=== PATIENT | female | born 2000 | race Caucasian/White ===

== ENCOUNTER 2021-07-11 11:48 | Emergency (ER) | payer OTHER, SELFPAY ==
[2021-07-11 12:16] VITALS: BP 115/67; PULSE 99; RESP 18; TEMP 36.8; O2SAT 99
--- NOTE | 2021-07-11 13:00 | ED.GENADULT ---
HPI - General Adult General Chief complaint: Upper Respiratory Infection Stated complaint: sorethroat Source: patient Mode of arrival: ambulatory Limitations: no limitations History of Present Illness HPI narrative: Patient is a 20-year-old female presents to the urgent care via POV for evaluation of a sore throat that began yesterday. Additionally, she is myalgias. No relief with Sudafed. Nothing improves or worsen symptoms. Patient denies known exposure to sick contacts. She states that she is unvaccinated against Covid and influenza. Related Data Home Medications Medication Instructions Recorded Confirmed No Home Medications 07/11/21 07/11/21 Allergies Allergy/AdvReac Type Severity Reaction Status Date / Time codeine Allergy Unknown Verified 07/11/21 12:40 Review of Systems Review of Systems: Denies fever, chills, sweats, change in appetite, poor p.o. intake, ear pain, ear drainage, sinus problems, rhinorrhea, drooling, difficulty swallowing, cough, wheezing, shortness of breath, chest pain, heart palpitations, abdominal pain, nausea, vomiting, diarrhea, and lymphadenopathy PMFSH Social History Social History Gender identity (if verbalized by the patient): Female Comments Spinal stenosis, radiculopathy/sciatica,cauda equina syndrome, sacroiliac pathology, fracture, strain Exam Narrative: GENERAL: Well-appearing, well-nourished, and in no acute distress. HEAD: Normocephalic, atraumatic. No sinus tenderness or facial swelling appreciated. EYES: PERRLA and EOMI. No evidence of erythema, swelling, or drainage. ENT: Bilateral external ears and ear canals normal. Bilateral TMs are normal.No TM perforation. Nares clear, no rhinorrhea or epistaxis. Bilateral turbinates without erythema/ swelling. Mucous membranes moist and pink. Uvula is midline without erythema and swelling. Mild erythema noted to posterior pharynx otherwise normal. Breath odor and voice normal. NECK: Supple. No Lymphadenopathy or nuchal rigidity appreciated. CHEST: Bilateral lung daley are clear to auscultation. No respiratory distress. No evidence of cough or pleuritic cp upon examination. HEART: Regular rate and rhythm. No murmur, gallop, or rub heard. EXTREMITIES: Normal range of motion. No edema. SKIN: Warm, dry, no rash. NEURO: No focal deficits. Alert and oriented x3. Course Vital Signs Vital signs: Vital Signs Temperature 98.2 F 07/11/21 12:16 Pulse Rate 99 07/11/21 12:16 Respiratory Rate 18 07/11/21 12:16 Blood Pressure 115/67 07/11/21 12:16 Pulse Oximetry 99 07/11/21 12:16 Temperature 98.2 F 07/11/21 12:16 Pulse Rate 99 07/11/21 12:16 Respiratory Rate 18 07/11/21 12:16 Blood Pressure 115/67 07/11/21 12:16 Pulse Oximetry 99 07/11/21 12:16 Review Medical Decision Making MDM Narrative Medical decision making narrative: The patient/guardian displays adequate decision making capability and despite a detailed discussion of alternatives, benefits, risks, and consequences refuses COVID-19 and influenza testing Differential Diagnosis Differential Diagnosis: Allergic rhinitis, ABRS, acute viral sinusitis, strep pharyngitis, nasopharyngitis, bronchitis, pneumonia, AOM, otitis externa, viral URI, influenza, covid-19 Medical Records Medical records reviewed: Yes I reviewed the external patient's medical records. Vital Signs Vital Signs: Vital Signs Temperature 98.2 F 07/11/21 12:16 Pulse Rate 99 07/11/21 12:16 Respiratory Rate 18 07/11/21 12:16 Blood Pressure 115/67 07/11/21 12:16 Pulse Oximetry 99 07/11/21 12:16 Temperature 98.2 F 07/11/21 12:16 Pulse Rate 99 07/11/21 12:16 Respiratory Rate 18 07/11/21 12:16 Blood Pressure 115/67 07/11/21 12:16 Pulse Oximetry 99 07/11/21 12:16 Lab Data Lab results reviewed: Yes I reviewed the patient's lab results. Lab results narrative: Rapid stre
== END 2021-07-11 13:15 | disposition home or self-care (01) ==
PROVIDERS: Emergency Provider Nurse Practitioner Family
DX: J06.9 Acute upper respiratory infection, unspecified (principal)
CPT/HCPCS: 87081; 87880; 99213; G0463

== ENCOUNTER 2021-10-22 10:26 | Emergency (ER) | payer OTHER, SELFPAY ==
--- NOTE | 2021-10-22 10:56 | ED.URI ---
HPI - URI/Sore Throat General Stated Complaint: nasal congestion,cough Time Seen by Provider: 10/22/21 11:05 Source: patient Mode of arrival: ambulatory Limitations: no limitations History of Present Illness HPI Narrative: Ms. Cortes is a 20-year-old female patient presenting to the clinic today with complaints of sinus congestion, cough, sinus pressure, yellow nasal drainage, and headaches x11 to 12 days. She reports no known fever or chills. No known exposure to anyone with Covid, flu, or strep. Thinks that she may have a sinus infection MD elicited complaint: cough, sore throat, rhinorrhea, nasal congestion and sinus pain Related Data Allergies Allergy/AdvReac Type Severity Reaction Status Date / Time codeine Allergy Unknown Verified 10/22/21 11:18 Review of Systems Review of Systems: Pertinent positives per HPI. Patient denies any fever, chills, rash, headache, visual changes, dizziness, shortness of breath, chest pain, palpitations, nausea, vomiting, diarrhea, constipation, abdominal pain, or any urinary issues. [facility] Social History Social History Gender identity (if verbalized by the patient): Female Comments At the time of my signature, I reviewed and agree with the nursing past medical, surgical, social, and family history. There is no relevant family history pertinent to the patient complaint. Exam Narrative: General: Well-developed, well nourished, in no apparent distress Head: Normocephalic, atraumatic Eyes: Pupils equally round and reactive to light bilaterally, EOM intact, sclera and conjunctive clear, no discharge, lids normal Ears: TMs intact and clear, ear canals clear, no drainage, grossly hearing normal. Nose: Nares patent, no discharge, no inflammation, no sinus tenderness. Mouth: Oral pharynx without lesions or masses, good dentition, MMM. Neck: Supple, trachea midline, no enlargement of anterior or posterior cervical nodes, no thyroid masses or goiter palpable. Cardio: Regular rate and rhythm, s1 and s2 normal, no murmur appreciated. Resp: Clear to auscultation bilaterally, no rhonchi, rales, wheezing or rubs Course Course Emergency Course: Portions of this record may have been created with voice recognition software. Level of Care: Express Care Visit Vital Signs Vital signs: Vital signs reviewed MDM - URI/Sore Throat MDM Narrative Medical decision making narrative: At the time of assessment patient is resting comfortably on the exam table. Reporting sinus pain/pressure with yellow nasal drainage. Having sinus headaches. Symptoms has been ongoing for 11 to 12 days. I suspect acute rhinosinusitis and will treat with a course of Augmentin. Supportive measures was discussed with patient she voiced understanding Differential Diagnosis Differential diagnosis: Likely upper respiratory infection, sinusitis, viral infection, influenza and pharyngitis Discharge Plan Discharge Clinical Impression: Acute bacterial rhinosinusitis Patient Disposition: Home, Self-Care Condition: Stable Instructions: Antibiotic Form, Rhinosinusitis (ED) Additional Instructions: Take prescription medications only as prescribed Augmentin as prescribed-May take [id number] Sudafed as needed for nasal congestion Increase fluids and stay well hydrated Tylenol/motrin for pain/fever Flonase and OTC antihistamines as directed Vicks vapor rub to open sinuses Sinus rinses for congestion Cepacol spray, cough drops, throat lozenges, warm tea with honey/lemon, gargle salt water to soothe throat BRAT diet for diarrhea Clear liquids x 24 hours then advance as tolerated for nausea/vomiting May return to the clinic if symptoms worsen Go to the ED if you develop dehydration, weakness, lethargy, shortness of breath, or chest pain. Follow up with your PCP in 3-5 days if symptoms persist. Prescriptions: New amoxicillin-pot clavulan
[2021-10-22 10:58] VITALS: BP 112/63; PULSE 68; RESP 18; TEMP 36.4; O2SAT 100
== END 2021-10-22 11:22 | disposition home or self-care (01) ==
PROVIDERS: Emergency Provider Nurse Practitioner Family
DX: J01.90 Acute sinusitis, unspecified (principal)
CPT/HCPCS: 99213; G0463

== ENCOUNTER 2022-06-29 21:34 | Emergency (ER) | payer MEDICAID, SELFPAY ==
--- NOTE | ~2022-06-29 | CT_ITS ---
EXAMINATION: CT abdomen pelvis w con INDICATION: Right upper quadrant abdominal pain TECHNIQUE: Computed tomographic images of the abdomen and pelvis were obtained after the administrati on of 100 cc of Omnipaque 350 intravenous contrast. The dose-length product (DLP) was 495.80 mGy-cm. Automated exposure control and iterative reconstruction technique were employed. COMPARISON: None available FINDINGS: The lung bases are clear. The heart size is normal. The liver, spleen, pancreas, gallbladde r, and adrenal glands are normal. The kidneys are unremarkable. No pathologically enlarged abdominal or pelvic lymph nodes are identified. There is no free intraperitoneal gas or evidence of bowel obstr uction. The appendix is normal. There is a 2.2 cm right adnexal cyst. IMPRESSION: 1. No CT correlate for the patient's symptoms. Reviewed, dictated and finalized at location A. H NP
[2022-06-29 21:37] VITALS: BP 135/77; PULSE 82; RESP 16; TEMP 36.6; O2SAT 99
[2022-06-30] MEDS: SODIUM CHLORIDE 0.9% IV 1,000 ML 999 ML IV CONT (01:05)
[2022-06-30] MEDS: ONDANSETRON INJ 4 MG/2 ML VIAL IV PUSH (01:05)
[2022-06-30 01:08] LABS: Basophils Percent Auto 0.4 % (0.2-1.2); Eosinophils Absolute Auto 0.6 K/mm3 (0-0.3); Eosinophils Percent Auto 5.9 % (0-4.4); Hematocrit 39.1 % (37.0-47.0); Hemoglobin 13.4 g/dL (12.0-15.0); Immature Granulocyte Absolute 0.02 K/mm3 (0.00-0.031); Immature Granulocyte Percent A 0.2 % (0-0.5); Lymphocytes Absolute Auto 3.76 K/mm3 (0.9-3.2); Lymphocytes Percent Auto 39.8 % (18.3-44.2); Mean Corpuscular HGB Conc 34.3 g/dl (32-36); Mean Corpuscular Hemoglobin 31.9 pg (26-34); Mean Corpuscular Volume 93.1 fl (80-100); Mean Platelet Volume 10.9 fl (7.4-10.4); Monocytes Absolute Auto 0.8 K/mm3 (0.1-0.6); Monocytes Percent Auto 8.3 % (2.6-8.5); Neutrophils Absolute Auto 4.3 K/mm3 (1.3-6.7); Neutrophils Percent Auto 45.4 % (45.5-73.1); Platelet Count Result 208 k/mm3 (150-375); Red Cell Distribution Width 11.4 % (11.5-14.5); White Blood Count 9.5 K/mm3 (4.5-10.0)
[2022-06-30] MEDS: KETOROLAC 30 MG/ML VIAL (*BKC) IV PUSH (01:10)
[2022-06-30 01:12] LABS: Add Urine Microscopic? YES; Appearance Urine Clear (Clear); Bilirubin Urine Negative (Negative); Blood Urine Negative (Negative); Color Urine Light Yellow (Yellow); Glucose Urine UA Negative (Negative); Ketones Urine Trace mg/dL (Negative); Leukocyte Esterase Ur Negative LEU/UL (Negative); Nitrate Urine Negative (Negative); Protein Urine Negative (Negative); Specific Grav Ur 1.015 (1.001-1.035); Urobilinogen Urine 0.2 mg/dL (<2.0); pH Urine 6.5 (5.0-9.0)
[2022-06-30 01:14] LABS: Bacteria Urine Trace /hpf; Mucus Urine Rare /lpf; Squamous Epithelial Cell Urine Rare /hpf (Few); WBC Urine 0-3 /hpf
[2022-06-30 01:19] LABS: Alanine Aminotransferase 18 U/L (6-35); Albumin Level 4.9 g/dL (3.5-5.1); Alkaline Phosphatase 70 U/L (38-126); Anion Gap 7 mmol/L (8-16); Aspartate Amino Transferase 21 U/L (14-36); Bilirubin,Total 0.5 mg/dL (0.2-1.3); Blood Urea Nitrogen 15 mg/dL (7-17); Calcium 9.8 mg/dL (8.4-10.2); Carbon Dioxide 25 mmol/L (22-30); Chloride 104 mmol/L (98-107); Estimated CRCL calculation 97 ml/min; Estimated Glomerular Filt Rate > 60; Glucose 93 mg/dL (65-110); Potassium 3.6 mmol/L (3.4-5.0); Sodium 136 mmol/L (137-145)
[2022-06-30 01:20] LABS: INR 1.1; Prothrombin Time 13.4 Seconds (11.1-14.7)
[2022-06-30 01:21] LABS: Partial Thromboplastin Time 28.3 SECONDS (22.3-36.8)
--- NOTE | 2022-06-30 04:30 | ED.GENADULT ---
HPI - General Adult General Chief complaint: Back Pain/Injury Stated complaint: kidney stones? Time Seen by Provider: 06/29/22 23:56 History of Present Illness HPI narrative: Patient is a 21-year-old female who presents today with right-sided flank pain. Began this evening. Sudden onset. Associate with nausea but no vomiting. Movement into the right upper quadrant. No pain into her lower abdomen. No urinary frequency urgency or dysuria. No identified alleviating factors. Reports it may have been provoked by eating. Related Data Allergies Allergy/AdvReac Type Severity Reaction Status Date / Time codeine Allergy Unknown Unknown Verified 06/29/22 21:35 Review of Systems Review of Systems: All systems reviewed & are unremarkable except as noted in HPI and below Constitutional: Constitutional: Denies chills and Denies fatigue ENT: Denies nasal congestion and Denies sore throat Cardiovascular: Cardiovascular: Denies chest pain, Denies rapid heart rate and Denies radiating jaw, neck or arm pain Respiratory: Respiratory: Denies cough and Denies dyspnea Gastrointestinal: Gastrointestinal: Reports abdominal pain, Denies diarrhea, Reports nausea and Denies vomiting Genitourinary: Genitourinary: Denies hematuria, Denies nocturia, Denies dysuria and Reports flank pain PMFSH Social History Social History Gender identity (if verbalized by the patient): Female Exam Narrative: GENERAL: Well-appearing, well-nourished, and in no acute distress. HEAD: Normocephalic, atraumatic. ENT: Mucous membranes moist. CHEST: Clear to auscultation. No respiratory distress. HEART: Regular rate and rhythm. Normal peripheral pulses. ABDOMEN: Soft, tender palpation right upper quadrant with Perdomo sign, nondistended. No CVA tenderness EXTREMITIES: Normal range of motion. No edema. SKIN: Warm, dry, no rash. NEURO: Alert and oriented x3. PSYCH: Normal mood and affect. Course Course Emergency Course: Pain controlled. Informed of results. Recommend outpatient ultrasound through PCP for further evaluation. Patient informed of incidental ovarian cyst. Encouraged low-fat diet. Vital Signs Vital signs: Vital Signs Temperature 97.9 F 06/29/22 21:37 Pulse Rate 82 06/29/22 21:37 Respiratory Rate 16 06/29/22 21:37 Blood Pressure 135/77 06/29/22 21:37 Pulse Oximetry 99 06/29/22 21:37 Oxygen Delivery Room Air 06/29/22 21:37 Temperature 97.9 F 06/29/22 21:37 Pulse Rate 82 06/29/22 21:37 Respiratory Rate 16 06/29/22 21:37 Blood Pressure 135/77 06/29/22 21:37 Pulse Oximetry 99 06/29/22 21:37 Oxygen Delivery Room Air 06/29/22 21:37 Medical Decision Making Vital Signs Vital Signs: Vital Signs Temperature 97.9 F 06/29/22 21:37 Pulse Rate 82 06/29/22 21:37 Respiratory Rate 16 06/29/22 21:37 Blood Pressure 135/77 06/29/22 21:37 Pulse Oximetry 99 06/29/22 21:37 Oxygen Delivery Room Air 06/29/22 21:37 Temperature 97.9 F 06/29/22 21:37 Pulse Rate 82 06/29/22 21:37 Respiratory Rate 16 06/29/22 21:37 Blood Pressure 135/77 06/29/22 21:37 Pulse Oximetry 99 06/29/22 21:37 Oxygen Delivery Room Air 06/29/22 21:37 Lab Data 06/30/22 01:02 06/30/22 01:02 Labs: Lab Results 06/30/22 06/30/22 06/30/22 Range/Units 00:57 01:02 01:02 WBC 9.5 (4.5-10.0) K/mm3 RBC 4.20 (4.2-5.4) M/mm3 Hgb 13.4 (12.0-15.0) g/dL Hct 39.1 (37.0-47.0) % MCV 93.1 (80-100) fl MCH 31.9 (26-34) pg MCHC 34.3 (32-36) g/dl RDW 11.4 L (11.5-14.5) % Plt Count 208 (150-375) k/mm3 MPV 10.9 H (7.4-10.4) fl Immature Gran % (Auto) 0.2 (0-0.5) % Neut % (Auto) 45.4 L (45.5-73.1) % Lymph % (Auto) 39.8 (18.3-44.2) % Mckinley % (Auto) 8.3 (2.6-8.5) % Eos % (Auto) 5.9 H (0-4.4) % Baso % (Auto) 0.4 (0.2-1.2) % Lymph # (Auto)
== END 2022-06-30 04:53 | disposition home or self-care (01) ==
PROVIDERS: Emergency Provider Emergency Medicine
DX: R10.9 Unspecified abdominal pain (principal)
CPT/HCPCS: 36415; 74177; 80053; 81001; 81025; 85025; 85610; 85730; 96361; 96374; 96375; 99284; J1885; J2405; J7030; Q9967

== ENCOUNTER → 2022-07-02 13:48 | Outpatient (CLI) | payer MEDICAID, SELFPAY ==
--- NOTE | ~2022-07-02 | US_ITS ---
Renal-Bladder ultrasound Clinical History: Nausea, pain Technique: Real-time sonographic imaging of the kidneys and urinary bladder was performed. Findings: The right kidney measures 11.9 cm in length and the left kidney measures 11.6 cm. There is no hydronephrosis or renal calculus identified. Renal cortical echogenicity is within normal limits. No renal mass lesion is identified. The urinary bladder is partially distended at the time of this exam. No intraluminal echoes are ident ified. No abnormal wall thickening is seen. Impression: Unremarkable ultrasound of the kidneys and urinary bladder. Reviewed, dictated and finalized at location M. MANAGER Impression: Unremarkable ultrasound of the kidneys and urinary bladder.
== END ==
DX: R11.0 Nausea (principal); M54.6 Pain in thoracic spine
CPT/HCPCS: 76775

== ENCOUNTER → 2022-07-04 12:46 | Outpatient (CLI) | payer MEDICAID, SELFPAY ==
--- NOTE | ~2022-07-04 | US_ITS ---
Limited Abdominal Sonogram: Real-time sonographic imaging of the right upper quadrant was performed. Clinical History: Nausea Findings: The liver appears normal with no evidence of mass lesion or bile duct dilatation. Main por jaxon vein demonstrates normal direction of flow. The gallbladder is well distended, and appears normal with no evidence of gallstone or wall thickening. The common bile duct measures 3 mm. The visualize d pancreas, aorta, and IVC are unremarkable. Impression: No significant abnormality seen. Reviewed, dictated and finalized at location M. ND PLANNER Impression: No significant abnormality seen.
== END ==
DX: R11.0 Nausea (principal); M54.6 Pain in thoracic spine
CPT/HCPCS: 76705

== ENCOUNTER 2024-01-08 10:15 | Emergency (ER) | payer OTHER, MEDICAID, SELFPAY ==
--- NOTE | 2024-01-08 10:18 | ED.URI ---
HPI - URI/Sore Throat General Chief Complaint: Upper Respiratory Infection Stated Complaint: +COVID test @ home work note Time Seen by Provider: 01/08/24 10:18 Source: patient Mode of arrival: ambulatory Limitations: no limitations History of Present Illness HPI Narrative: Santa is a 23-year-old female patient presenting to the clinic today with complaints cough, headache,congestion, nausea, diarrhea, low grade fever, body aches and chills x3 days. She reports that she had a positive COVID test at home today and is needing a work note. Symptoms began on Friday of this week Related Data Home Medications Medication Instructions Recorded Confirmed alprazolam 0.25 mg tablet 0.25 mg PO DAILY 01/08/24 01/08/24 Allergies Allergy/AdvReac Type Severity Reaction Status Date / Time codeine Allergy Unknown Unknown Verified 01/08/24 10:18 Review of Systems Review of Systems: Pertinent positives per HPI. Patient denies any rash, visual changes, dizziness, shortness of breath, chest pain, palpitations, nausea, vomiting, diarrhea, constipation, abdominal pain, or any urinary issues. PMFSH Social History Social History Gender identity (if verbalized by the patient): Female Comments At the time of my signature, I reviewed and agree with the nursing past medical, surgical, social, and family history. There is no relevant family history pertinent to the patient complaint. Exam Narrative: General: Well-developed, well nourished, in no apparent distress Head: Normocephalic, atraumatic Eyes: Pupils equally round and reactive to light bilaterally, EOM intact, sclera and conjunctive clear, no discharge, lids normal Ears: TMs intact and clear, ear canals clear, no drainage, grossly hearing normal. Nose: Nares patent, clear discharge, no inflammation, no sinus tenderness. Mouth: Oropharynx without lesions or masses, good dentition, MMM. Neck: Supple, trachea midline, no enlargement of anterior or posterior cervical nodes, no thyroid masses or goiter palpable. Cardio: Regular rate and rhythm, s1 and s2 normal, no murmur appreciated. Resp: Clear to auscultation bilaterally anteriorly and posteriorly, no rhonchi, rales, wheezing or rubs Course Course Emergency Course: Portions of this record may have been created with voice recognition software. Level of Care: Express Care Visit Vital Signs Vital signs: Vital signs reviewed MDM - URI/Sore Throat MDM Narrative Medical decision making narrative: At the time of visit patient is resting comfortably on the exam table. Patient appears to be nontoxic. Labs: COVID testing was positive in the clinic today. Plan: I suspect patient has COVID 19. Discussed new quarantine guidelines and will give work note till Friday-may return on Friday as long as she is fever free. Supportive measures were discussed with the patient and they voiced understanding discharge instructions and agrees to treatment plan. Return precautions reviewed Differential Diagnosis Differential diagnosis: Likely upper respiratory infection, croup, otitis media, sinusitis, viral infection, bronchitis, influenza, pharyngitis and other (COVID) Discharge Plan Discharge Clinical Impression: COVID-19 Patient Disposition: Home, Self-Care Condition: Stable Instructions: Antibiotic Form, How to Recover from COVID-19 at Home (ED) Additional Instructions: COVID testing was positive in the clinic today Increase fluids and stay well hydrated Tylenol/motrin for pain/fever Flonase and OTC antihistamines as directed Vicks vapor rub to open sinuses Sinus rinses for congestion Cepacol spray, cough drops, throat lozenges, warm tea with honey/lemon, gargle salt water to soothe throat BRAT diet for diarrhea Clear liquids x 24 hours then advance as tolerated for nausea/vomiting Go to the ED if you develop a worsening in your co
[2024-01-08 10:34] VITALS: BP 122/64; PULSE 76; RESP 16; TEMP 36.6; O2SAT 98
== END 2024-01-08 11:00 | disposition home or self-care (01) ==
PROVIDERS: Emergency Provider Nurse Practitioner Family; PCP Nurse Practitioner Family
DX: U07.1 COVID-19 (principal); J45.909 Unspecified asthma, uncomplicated
CPT/HCPCS: 87426; 99213; G0463

== ENCOUNTER 2024-01-21 10:37 | Emergency (ER) | payer OTHER, SELFPAY ==
[2024-01-21 10:47] VITALS: BP 117/68; PULSE 75; RESP 18; TEMP 36.9; O2SAT 100
--- NOTE | 2024-01-21 11:09 | ED.DIZZY ---
HPI - Dizziness General Chief Complaint: Dizziness Stated Complaint: Dizziness, ear pain Time Seen by Provider: 01/21/24 10:55 Source: patient and RN notes reviewed Mode of arrival: ambulatory Limitations: no limitations History of Present Illness HPI Narrative: Patient presents today complaining of dizziness that was present when she woke up yesterday morning. It decreased throughout the day yesterday, but increased slightly today. She did have some left ear pain that started yesterday, but now reports some bilateral ear pressure. She did have nausea throughout the day yesterday that still persists. Her dizziness is worse when she is standing or moving her head from side to side. She has tried no [id number] treatment prior to arrival. Related Data Home Medications Medication Instructions Recorded Confirmed alprazolam 0.25 mg tablet 0.25 mg PO DAILY 01/08/24 01/08/24 Allergies Allergy/AdvReac Type Severity Reaction Status Date / Time codeine Allergy Unknown Unknown Verified 01/08/24 10:18 Review of Systems Review of Systems: CONSTITUTIONAL: Denies body aches, fever, chills, or sweats. EYES: Denies visual changes, redness, or discharge. ENT: Denies rhinorrhea, congestion, sore throat. + bilateral ear pressure CARDIOVASCULAR: Denies chest pain, palpitations, or edema. RESPIRATORY: Denies cough or dyspnea. GASTROINTESTINAL: Denies abdominal pain, vomiting, or diarrhea.+ nausea GENITOURINARY: Denies dysuria or hematuria. SKIN: Denies rash, itching, or wounds. MUSCULOSKELETAL: Denies back pain, joint pain, or myalgia. NEUROLOGIC: Denies headache, numbness, tingling, or weakness.+ dizziness PSYCH: Denies depression or anxiety. PMFSH Social History Social History Gender identity (if verbalized by the patient): Female Comments At time of signature, I have reviewed and agree with nursing past medical, surgical, social and family history unless otherwise noted. Please see nursing chart for further information. There is no relevant family history pertinent to the presenting complaint Exam Narrative: GENERAL: Well-appearing, well-nourished, and in no acute distress. HEAD: Normocephalic, atraumatic. EYES: EOMI. PERRL. No nystagmus. No redness or drainage. Conjunctivae normal. ENT: Mucous membranes pink and moist. Nares clear. No rhinorrhea. Right TM normal with [id number] serous effusion. Left TM normal. Throat normal. Uvula midline. NECK: Normal AROM. Supple. No lymphadenopathy. CHEST: No respiratory distress. Clear to auscultation. HEART: Regular rate and rhythm. No murmur appreciated. EXTREMITIES: Normal range of motion. No edema. SKIN: Warm, dry, no rash. Capillary refill normal. Normal skin turgor. NEURO: No focal deficits. Alert and oriented x3. Gait steady. PSYCH: Normal affect. No signs of depression or anxiety. Course Course Level of Care: Express Care Visit Vital Signs Vital signs: Vital Signs Temperature 98.4 F 01/21/24 10:47 Pulse Rate 75 01/21/24 10:47 Respiratory Rate 18 01/21/24 10:47 Blood Pressure 117/68 01/21/24 10:47 Pulse Oximetry 100 01/21/24 10:47 Temperature 98.4 F 01/21/24 10:47 Pulse Rate 75 01/21/24 10:47 Respiratory Rate 18 01/21/24 10:47 Blood Pressure 117/68 01/21/24 10:47 Pulse Oximetry 100 01/21/24 10:47 Reviewed MDM - Dizziness MDM Narrative Medical decision making narrative: Patient's symptoms are consistent with vertigo. She does have a mild serous effusion on the right. She will be treated with Zofran and meclizine at [facility]. Prescription for Zofran sent to pharmacy. Discussed meclizine use at home as well. ED precautions given. Differential Diagnosis Differential diagnosis: Likely benign paroxysmal positional vertigo, orthostatic hypotension, acute vestibular neuronitis and other (Vertigo, Meniere's disease, otitis media, serous
[2024-01-21] MEDS: MECLIZINE HCL 25 MG TABLET 50 MG PO (11:13)
[2024-01-21] MEDS: ONDANSETRON HCL ODT 4 MG TABLET SUBLINGUAL (11:13)
== END 2024-01-21 11:18 | disposition home or self-care (01) ==
PROVIDERS: Emergency Provider Nurse Practitioner; PCP Nurse Practitioner Family
DX: R42 Dizziness and giddiness (principal); H65.01 Acute serous otitis media, right ear
CPT/HCPCS: 99213; A9270; G0463

== ENCOUNTER 2025-05-15 10:25 | Emergency (ER) | payer OTHER, SELFPAY ==
[2025-05-15 10:44] VITALS: BP 115/68; PULSE 105; RESP 20; TEMP 37.3; O2SAT 100
--- NOTE | 2025-05-15 11:41 | ED_ITS ---
HPI - General Adult General Chief complaint: Upper Respiratory Infection Stated complaint: sore throat Time Seen by Provider: 05/15/25 11:41 Source: patient Mode of arrival: ambulatory Limitations: no limitations History of Present Illness HPI narrative: 24-year-old female patient presents to [facility] with complaints of sore throat symptoms for the past 4-5 days. Patient states she recently just returned from vacation in [place]. Patient states her sore throat started the day after she returned. Patient states she has had low-grade fevers, body aches, chills and a little congestion. Denies any ear pain. Denies any coughing, chest pain or shortness of breath. Denies nausea vomiting or diarrhea. Patient states she has been taking [id number] Tylenol and ibuprofen for the pain. Related Data Home Medications ?Medication ?Instructions ?Recorded ?Confirmed ?Last Taken ?Type alprazolam 0.25 mg tablet 0.25 mg PO DAILY 01/08/24 Unknown History Allergies Allergy/AdvReac Type Severity Reaction Status Date / Time codeine Allergy Unknown Unknown Verified 01/08/24 10:18 Review of Systems Review of Systems: CONSTITUTIONAL: Positive low-grade fever, chills, and sweats. EYES: Denies visual changes, redness, or discharge. ENT: Denies rhinorrhea, positive congestion, positive sore throat, positive left otalgia. CARDIOVASCULAR: Denies chest pain, palpitations, or edema. RESPIRATORY: Denies cough or dyspnea. GASTROINTESTINAL: Denies abdominal pain, nausea, vomiting, or diarrhea. GENITOURINARY: Denies dysuria or hematuria. SKIN: Denies rash or itching. MUSCULOSKELETAL: Denies back pain, joint pain, or myalgia. NEUROLOGIC: Positive headache, denies numbness, or weakness. PSYCHIATRIC: Denies anxiety or depression. [facility] Past Medical History Medical History No significant past medical history Social History Social History Gender identity (if verbalized by the patient): Female Comments At the time of my signature I agree with nursing past medical history, surgical, social, and family history. There is no relevant family history pertinent to the presenting complaint. Exam Narrative: GENERAL: ill-appearing, well-nourished, and in no acute distress. HEAD: Normocephalic, atraumatic. EYES: PERRLA and EOMI. ENT: Nares with erythema edema noted to the left near, no rhinorrhea or epistaxis. Mucous membranes moist. Posterior pharynx with 3+ tonsillar enlargement erythema small white exudates noted to the left tonsil. Bilateral TMs are clear no erythema foreign bodies the canal. NECK: Supple. No lymphadenopathy CHEST: Clear to auscultation. No respiratory distress. HEART: Regular rate and rhythm. No murmur heard. Normal peripheral pulses. ABDOMEN: Soft, nontender, nondistended, normal active bowel sounds. EXTREMITIES: Normal range of motion. No edema. SKIN: Warm, dry, no rash. NEURO: No focal deficits. Alert and oriented x3. Course Course Level of Care: Express Care Visit Vital Signs Vital signs: Vital Signs Temperature 37.3 C 05/15/25 10:44 Pulse Rate 105 H 05/15/25 10:44 Respiratory Rate 20 05/15/25 10:44 Blood Pressure 115/68 05/15/25 10:44 Pulse Oximetry 100 05/15/25 10:44 Oxygen Delivery Room Air 05/15/25 10:44 Temperature 37.3 C 05/15/25 10:44 Pulse Rate 105 H 05/15/25 10:44 Respiratory Rate 20 05/15/25 10:44 Blood Pressure 115/68 05/15/25 10:44 Pulse Oximetry 100 05/15/25 10:44 Oxygen Delivery Room Air 05/15/25 10:44 Vital signs reviewed. Medical Decision Making MDM Narrative Medical decision making narrative: Discussed with patient that her point of care testing for your strep, influenza and COVID are all negative today. Discussed with patient it does appear that she has got stone pretty swollen and red tonsils which we will provide her some steroids to help with the pain since ibuprofen is not helping. Discussed with patient to continue taking [id number] medication including Tylenol and ibuprofen as needed and highly recommend that she increase her vitamin intake including vitamin-C, vitamin-D and zinc to help boost the immune system. Discussed with patient hot tea and honey can also help soothe the throat as well. Patient was provided a work note for the next 2 days and discussed with her that if the culture comes back as positive we will call her antibiotics at that time for her throat. Differential Diagnosis Differential Diagnosis: Differential diagnosis: Allergic rhinitis, chronic sinusitis, tonsillitis, acute sinusitis, infectious mononucleosis, seasonal influenza, pertussis, diphtheria, meningococcal disease, viral syndrome, viral bronchitis, RSV, COVID- 19 Vital Signs Vital Signs: Vital Signs Temperature 37.3 C 05/15/25 10:44 Pulse Rate 105 H 05/15/25 10:44 Respiratory Rate 20 05/15/25 10:44 Blood Pressure 115/68 05/15/25 10:44 Pulse Oximetry 100 05/15/25 10:44 Oxygen Delivery Room Air 05/15/25 10:44 Temperature 37.3 C 05/15/25 10:44 Pulse Rate 105 H 05/15/25 10:44 Respiratory Rate 20 05/15/25 10:44 Blood Pressure 115/68 05/15/25 10:44 Pulse Oximetry 100 05/15/25 10:44 Oxygen Delivery Room Air 05/15/25 10:44 Lab Data Labs: Lab Results 05/15/25 Range/Units 10:38 POC Influenza A Ag Negative (Negative) POC Influenza B Ag Negative (Negative) POC SARS CoV-2 Ag Negative (Negative) POC Grp A Strep Screen Negative (Negative) Critical Care Time Critical Care Time Critical Care Time: No Discharge Plan Discharge Clinical Impression: Acute tonsillitis, Acute viral pharyngitis Patient Disposition: Home Condition: Stable Instructions: Antibiotic Form, Pharyngitis (ED) Additional Instructions: A sore throat can be caused by an infection from a virus or bacteria. Sore throat can also be caused by postnasal drip, allergies, and exposure to smoke. A viral sore throat last 3-4 days and cannot be treated with antibiotics. One type of sore throat virus, infectious mononucleosis (mono), can last for 3 weeks and older children. The germs that cause these infections are contagious and can be spread by coughing or sharing drinks or utensils. Contact her primary care physician or go to the ER if: Your trouble breathing or swallowing because her throat is swollen or sore. You're drooling because it hurts too much to swallow. You're painful lump in your throat go away after 5 days. You're fever is higher than 10 2??F or last longer than 3 days. You have confusion. You are blood in your throat. You're sore throat should feel better within 3-5 days without treatment if it is caused by virus. You may need the following: Ibuprofen or Tylenol as needed for pain or fever Gargle warm salt water Drink more liquids, cold or warm drinks may help soothe her throat. Humidifier in your room. Cough drops, ice, soft foods, or popsicles may help soothe her throat. A spoonful of honey could help with inflammation and soothe her throat. Wash her hands with soap and water, do not share food or drinks, throat away her toothbrush after 72 hours. Patient Language: Ethiopian Prescriptions: New prednisone 20 mg tablet 20 mg PO DAILY 5 Days Qty: 5 0RF No Action alprazolam 0.25 mg tablet 0.25 mg PO DAILY ondansetron 4 mg tablet,disintegrating 4 mg PO TID PRN (Reason: nausea and vomiting) Qty: 15 0RF Follow-up/Referrals: PHYSICIAN,[facility] [Primary Care Provider, Internal Medicine] Stand Alone Forms: Work/School Release IP Time of Disposition: 11:48
[2025-05-15 11:46] LABS: EDCOVIDSCREEN Negative (Negative); EDINFLUASCREEN Negative (Negative); EDINFLUBSCREEN Negative (Negative); EDSTREPNEGPOS1 Negative (Negative)
== END 2025-05-15 11:51 | disposition home or self-care (01) ==
PROVIDERS: Emergency Provider Nurse Practitioner Family
DX: J02.8 Acute pharyngitis due to other specified organisms (principal); Z20.822 Contact with and (suspected) exposure to COVID-19
CPT/HCPCS: 87081; 87426; 87804; 87880; 99213; G0463